=== PATIENT | female | born 1955 | race American Indian/Alaskan Native ===

== ENCOUNTER 2017-04-30 16:30 | Emergency (ER) | payer MEDICARE ==
[2017-04-30 17:13] LABS: Hematocrit 40.4 % (30.3-42.9); Hemoglobin 13.1 gm/dl (10.1-14.3); Mean Corpuscular HGB Conc 33 % (30-34); Mean Corpuscular Hemoglobin 29 pg (28-32); Mean Corpuscular Volume 90 fl (79-97); Platelet Count 286 K/mm3 (140-440); Red Blood Count 4.51 M/mm3 (3.65-5.03); Red Cell Distribution Width 15.1 % (13.2-15.2)
[2017-04-30 17:58] LABS: Anion Gap 20 mmol/L; Blood Urea Nitrogen 9 mg/dL (7-17); Calcium 10.8 mg/dL (8.4-10.2); Carbon Dioxide 22 mmol/L (22-30); Chloride 102.1 mmol/L (98-107); Glucose 146 mg/dL (65-100); Potassium 4.1 mmol/L (3.6-5.0); Sodium 140 mmol/L (137-145)
[2017-04-30] MEDS ORDERED: NACL 0.9% 1000 ML 1,000 ML IV ONE (19:58)
[2017-04-30] MEDS ORDERED: DELTASONE PO ONE (20:10)
[2017-04-30] MEDS ORDERED: PROVENTIL IH ONE (20:10)
[2017-04-30] MEDS ORDERED: DUONEB 0.5 MG-3 MG/3 ML SOLN IH ONE (20:10)
--- NOTE | 2017-04-30 20:14 | Emergency Department Report ---
ED Lower Extremity HPI - General Chief Complaint: Dyspnea/Respdistress Stated Complaint: R Leg Swelling Time Seen by Provider: 04/30/17 19:57 Source: patient Mode of arrival: Ambulatory Limitations: No Limitations - History of Present Illness Initial Comments: Patient is a 62-year-old female with a history of asthma and DVT greater than 10 years ago presenting to the ER with shortness of breath and right leg pain. Patient reports for the last 2 days she's had an ache in her right calf radiating upward into her right thigh, pain is constant and throbbing in nature. Patient reports she's had a DVT in the early 1999 and was on anticoagulants for 10 years but has only been taking baby aspirin for the last 7 years as per her PMD. Patient also reports associated shortness of breath with increased cough, no relief despite inhaler. Pt does not use a controller daily and has a rescue inhaler and prednisone when she needs it. Otherwise no fevers, chills, TAYLOR, NVD, sore throat, neck pain, chest pain, abd pain, travel, hemoptysis, falls, or sick contacts. - Related Data Home Medications Medication Instructions Recorded Confirmed Last Taken ALBUTEROL Inhaler [ProAir HFA 2 inhalation PO PRN 09/09/16 04/30/17 Unknown Inhaler] Aspirin [Adult Low Dose Aspirin EC] 81 mg PO QDAY 04/30/17 04/30/17 Unknown Tiotropium Br/Olodaterol HCl 2 puff PO PRN 04/30/17 04/30/17 Unknown [Stiolto Respimat Inhal [place]] predniSONE [Deltasone] 40 mg PO QDAY 04/30/17 04/30/17 Unknown Previous Rx's Medication Instructions Recorded Last Taken Type HYDROcodone/APAP 5-325 [[place] 1 each PO Q6HR PRN #20 tablet 09/09/16 Unknown Rx 5-325 mg TAB] Enoxaparin [Lovenox] 80 mg SQ Q12HR #8 syringe 05/01/17 Unknown Rx predniSONE [Deltasone] 50 mg PO QDAY #5 tab 05/01/17 Unknown Rx Allergies Allergy/AdvReac Type Severity Reaction Status Date / Time Penicillins Allergy Unknown Verified 03/18/16 20:51 Sulfa (Sulfonamide Allergy Hives Verified 03/29/16 10:08 Antibiotics) ED Review of Systems ROS: Stated complaint: R Leg Swelling Other details as noted in HPI Comment: All other systems reviewed and negative ED Past Medical Hx - Past Medical History Hx Heart Attack/AMI: Yes Hx Deep Vein Thrombosis: Yes Hx Asthma: Yes Additional medical history: chronic back pain / HIATIAL HERNIA - Surgical History Hx Cholecystectomy: Yes Hx Breast Surgery: Yes Additional Surgical History: back pain, tubal ligation, - Social History Smoking Status: Never Smoker Substance Use Type: None - Medications Home Medications: Home Medications Medication Instructions Recorded Confirmed Last Taken Type ALBUTEROL Inhaler [ProAir HFA 2 inhalation PO PRN 09/09/16 04/30/17 Unknown History Inhaler] HYDROcodone/APAP 5-325 [[place] 1 each PO Q6HR PRN #20 tablet 09/09/16 04/30/17 Unknown Rx 5-325 mg TAB] Aspirin [Adult Low Dose Aspirin EC] 81 mg PO QDAY 04/30/17 04/30/17 Unknown History Tiotropium Br/Olodaterol HCl 2 puff PO PRN 04/30/17 04/30/17 Unknown History [Stiolto Respimat Inhal [place]] predniSONE [Deltasone] 40 mg PO QDAY 04/30/17 04/30/17 Unknown History Enoxaparin [Lovenox] 80 mg SQ Q12HR #8 syringe 05/01/17 Unknown Rx predniSONE [Deltasone] 50 mg PO QDAY #5 tab 05/01/17 Unknown Rx ED Physical Exam - General Limitations: No Limitations General appearance: alert, in no apparent distress - Head Head exam: Present: atraumatic, normocephalic - Eye Eye exam: Present: normal appearance - ENT ENT exam: Present: mucous membranes moist - Neck Neck exam: Present: normal inspection - Respiratory Respiratory exam: Present: normal lung sounds bilaterally, wheezes (bilaterally) , decreased breath sounds. Absent: respiratory distress, rales, rhonchi, chest wall tenderness, accessory muscle use - Cardiovascular Cardiovascular Exam: Present: regular rate, normal rhythm, normal heart sounds. Absent: irregular rhythm, systolic murmur, diastolic murmur, rubs, gallop - GI/Abdominal GI/Abdominal exam: Present: soft, normal bowel sounds. Absent: distended, tenderness, guarding, rebound, rigid - Extremities Exam Extremities exam: Present: normal inspection, tenderness (Right lower calf and thigh), normal capillary refill. Absent: pedal edema, joint swelling - Back Exam Back exam: Present: normal inspection - Neurological Exam Neurological exam: Present: alert, oriented X3 - Psychiatric Psychiatric exam: Present: normal affect, normal mood - Skin Skin exam: Present: warm, dry, intact, normal color. Absent: rash ED Course Vital Signs 04/30/17 04/30/17 04/30/17 16:39 20:18 20:20 Temperature 99.1 F Pulse Rate 115 H Pulse Rate [ Anterior] Respiratory 18 Rate Respiratory Rate [Anterior] Blood Pressure 188/89 130/52 Blood Pressure [Right] O2 Sat by Pulse 97 98 98 Oximetry 04/30/17 04/30/17 04/30/17 20:30 21:26 21:30 Temperature Pulse Rate Pulse Rate [ Anterior] Respiratory Rate Respiratory Rate [Anterior] Blood Pressure 149/54 149/54 149/54 Blood Pressure [Right] O2 Sat by Pulse 99 99 99 Oximetry 04/30/17 04/30/17 04/30/17 21:40 21:50 22:00 Temperature Pulse Rate Pulse Rate [ Anterior] Respiratory Rate Respiratory Rate [Anterior] Blood Pressure 149/54 149/54 149/54 Blood Pressure [Right] O2 Sat by Pulse 97 96 100 Oximetry 04/30/17 04/30/17 04/30/17 22:10 22:55 22:58 Temperature Pulse Rate Pulse Rate [ 80 Anterior] Respiratory Rate Respiratory 20 Rate [Anterior] Blood Pressure 149/54 149/54 Blood Pressure [Right] O2 Sat by Pulse 100 98 Oximetry 04/30/17 04/30/17 05/01/17 23:00 23:10 00:44 Temperature Pulse Rate 82 Pulse Rate [ 88 Anterior] Respiratory 18 Rate Respiratory 20 Rate [Anterior] Blood Pressure 149/54 Blood Pressure 131/58 [Right] O2 Sat by Pulse 97 99 Oximetry - Reevaluation(s) Reevaluation #1: 05/01/17 00:32 Pt reports significant improvement after breathing treatments. Re-evaluation of the lungs show improved air movement and wheezing has resolved. Pt does report she has nebulizer treatments at home ED Lower Extremity MDM - Lab Data Result diagrams: 04/30/17 17:01 04/30/17 17:01 - Radiology Data Radiology results: report reviewed CTA chest: No PE, negative for acute cardiopulmonary findings - Medical Decision Making Given the patient history and presentation, patient needs a duplex of her lower extremities to rule out DVT. However we have no supervisor tower at this time. I discussed with the patient we will order it as an ambulatory order, hospitality manager her a Rx for dopplers, and she can have it done as an outpatient. Pt will be treated with lovenox 1mg/kg injections per day until she has results of her duplex. Critical care attestation.: If time is entered above; I have spent that time in minutes in the direct care of this critically ill patient, excluding procedure time. ED Disposition Clinical Impression: Arthralgia, Dyspnea, Asthma Disposition: - TO HOME OR SELFCARE Is pt being admited?: No Condition: Stable Instructions: Asthma (ED), Dyspnea (ED), Arthralgia (ED) Additional Instructions: PLEASE CALL [phone] AFTER 8AM TO BOOK AN APPOINTMENT FOR AN ULTRASOUND OF YOUR LOWER LEGS Prescriptions: Enoxaparin [Lovenox] 80 mg SQ Q12HR #8 syringe predniSONE [Deltasone] 50 mg PO QDAY #5 tab Referrals: PRIMARY CARE, [Primary Care Provider] - 3-5 Days
[2017-04-30 20:23] LABS: Bilirubin,Urine NEG (Negative); Blood,Urine SM (Negative); Ketones,Urine NEG (Negative); Leukocyte Esterase,Urine NEG (Negative); Nitrite,Urine NEG (Negative); Protein,Urine <15 mg/dL mg/dL (Negative); RBC,Urine < 1.0 /HPF (0.0-6.0); Urobilinogen,Urine < 2.0 mg/dL (<2.0)
[2017-04-30 20:27] LABS: WBC,Urine < 1.0 /HPF (0.0-6.0)
[2017-04-30] MEDS ORDERED: NACL ONE (20:54)
[2017-04-30] MEDS ORDERED: ZOFRAN ONE (21:21)
[2017-04-30] MEDS ORDERED: BENADRYL ONE (21:22)
--- NOTE | 2017-04-30 22:00 | Cat Scan Report ---
FINAL REPORT EXAM: CT ANGIO CHEST HISTORY: r/o PE, h/o DVT TECHNIQUE: CT imaging obtained through the chest in pulmonary angiographic phase following intravenous administration of 100 cc Omnipaque 350 contrast. Transaxial, Coronal and sagittal reformats are provided. PRIORS: None. FINDINGS: Normal caliber main pulmonary artery. Well opacified pulmonary arterial tree. No pulmonary embolism. Mediastinum is unremarkable. Thoracic aorta is normal in course and caliber. No pneumothorax, effusion or focal airspace disease. The central airways are patent. No bronchiectasis. Imaged portion of the upper abdomen is remarkable for cholecystectomy. The superficial soft tissues are unremarkable. No acute bony abnormality or worrisome osseous lesions identified. IMPRESSION: No pulmonary embolism or other acute chest finding.
[2017-04-30] MEDS ORDERED: BENADRYL IV ONE (22:11)
[2017-04-30] MEDS ORDERED: ZOFRAN IV ONE (22:11)
[2017-05-01] MEDS ORDERED: LOVENOX SUB-Q ONE (00:23)
[2017-05-01 00:46] VITALS: BP 131/58
--- NOTE | 2017-05-01 07:28 | XRay Report ---
Chest 2 views: History: Shortness of breath. Findings: Normal cardiomediastinal silhouette. Trachea is midline. No consolidation, pneumothorax or pleural effusion. Impression: No acute cardiopulmonary findings.
== END 2017-05-01 01:26 | disposition home or self-care (01) ==
LOC: ED 16:30
DX: J45.909 Unspecified asthma, uncomplicated (principal); M79.604 Pain in right leg; I25.2 Old myocardial infarction; Z79.82 Long term (current) use of aspirin; Z86.718 Personal history of other venous thrombosis and embolism; Z98.51 Tubal ligation status; Z98.890 Other specified postprocedural states; Z88.0 Allergy status to penicillin; Z88.2 Allergy status to sulfonamides
CPT/HCPCS: 36415; 71020; 71275; 80048; 81001; 83880; 85027; 85379; 94640; 96361; 96372; 96374; 96375; 99285; J1200; J1650; J2405; J2930; J7030; J7512; Q9967

== ENCOUNTER 2017-10-11 09:56 | Emergency (ER) | payer MEDICARE ==
[2017-10-11 11:23] LABS: Basophils % (Auto) 0.3 % (0.0-1.8); Eosinophils % (Auto) 2.6 % (0.0-4.3); Hematocrit 40.6 % (30.3-42.9); Hemoglobin 13.3 gm/dl (10.1-14.3); Mean Corpuscular HGB Conc 33 % (30-34); Mean Corpuscular Hemoglobin 29 pg (28-32); Mean Corpuscular Volume 90 fl (79-97); Platelet Count 249 K/mm3 (140-440); Red Blood Count 4.52 M/mm3 (3.65-5.03); Red Cell Distribution Width 15.6 % (13.2-15.2); White Blood Count 6.8 K/mm3 (4.5-11.0)
--- NOTE | 2017-10-11 11:29 | XRay Report ---
CHEST 2 VIEWS INDICATION: Shortness of breath. COMPARISON: 04/30/2017 FINDINGS: PA and lateral chest radiographs demonstrate stable cardiomediastinal silhouette and osseous structures. Slight increased bronchovascular prominence as in the right upper lobe. No significant pleural effusions. Cholecystectomy clips. CONCLUSION: Minimal pulmonary vascular redistribution without overt CHF. Please correlate. Thank you for the opportunity to participate in this patient's care.
--- NOTE | 2017-10-11 11:37 | Emergency Department Report ---
ED Shortness of Breath HPI - General Chief Complaint: Dyspnea/Respdistress Stated Complaint: ASTHMA, AND SPIDER BITE Time Seen by Provider: 10/11/17 11:18 Source: patient Mode of arrival: Wheelchair Limitations: No Limitations - History of Present Illness Initial Comments: Patient is 62 years old female with history of asthma, presented today with asthmatic exacerbation started 2 days ago associated with cough productive of greenish sputum, low-grade fever. Patient also stated that she has a lump on her left breast, she was seen by her primary care physician given doxycycline 2 days ago. Patient denied nausea vomiting or diarrhea. No chest pain. MD Complaint: shortness of breath, cough, "asthma attack" -: days(s) Known History Of: asthma - Related Data Home Medications Medication Instructions Recorded Confirmed Last Taken ALBUTEROL Inhaler [ProAir HFA 2 inhalation PO PRN 09/09/16 10/11/17 10/10/17 Inhaler] Doxycycline [Vibramycin] 100 mg PO Q12HR 10/11/17 10/11/17 10/10/17 Allergies Allergy/AdvReac Type Severity Reaction Status Date / Time Penicillins Allergy Unknown Verified 03/18/16 20:51 Sulfa (Sulfonamide Allergy Hives Verified 03/29/16 10:08 Antibiotics) ED Review of Systems ROS: Stated complaint: ASTHMA, AND SPIDER BITE Other details as noted in HPI Comment: All other systems reviewed and negative Constitutional: fever. denies: chills Eyes: denies: eye pain ENT: denies: throat pain Respiratory: cough, shortness of breath, SOB with exertion, SOB at rest, wheezing. denies: orthopnea Cardiovascular: denies: chest pain, palpitations Gastrointestinal: denies: abdominal pain, nausea, vomiting, diarrhea, constipation, hematemesis, melena, hematochezia Skin: denies: rash Neurological: denies: headache, weakness, numbness, paresthesias ED Past Medical Hx - Past Medical History Previous Medical History?: Yes Hx Heart Attack/AMI: Yes Hx Deep Vein Thrombosis: Yes Hx Asthma: Yes Additional medical history: chronic back pain / HIATIAL HERNIA - Surgical History Past Surgical History?: Yes Hx Cholecystectomy: Yes Hx Breast Surgery: Yes Additional Surgical History: back pain, tubal ligation, - Social History Smoking Status: Never Smoker Substance Use Type: Prescribed - Medications Home Medications: Home Medications Medication Instructions Recorded Confirmed Last Taken Type ALBUTEROL Inhaler [ProAir HFA 2 inhalation PO PRN 09/09/16 10/11/17 10/10/17 History Inhaler] Doxycycline [Vibramycin] 100 mg PO Q12HR 10/11/17 10/11/17 10/10/17 History ED Physical Exam - General Limitations: No Limitations General appearance: alert, in no apparent distress - Head Head exam: Present: atraumatic, normocephalic, normal inspection - Eye Eye exam: Present: PERRL - ENT ENT exam: Present: normal exam, normal orophraynx, mucous membranes moist - Neck Neck exam: Present: full ROM. Absent: tenderness, meningismus, lymphadenopathy - Respiratory Respiratory exam: Present: wheezes, decreased breath sounds, prolonged expiratory, other (left breast exam showed a 1 cm x 1 cm lesion, nontender to palpation no erythema or discharge.). Absent: respiratory distress, rales, rhonchi, stridor - Cardiovascular Cardiovascular Exam: Present: tachycardia. Absent: systolic murmur, diastolic murmur - GI/Abdominal GI/Abdominal exam: Present: soft, normal bowel sounds. Absent: tenderness, guarding, rebound, rigid, mass, bruit, pulsatile mass, hernia - Extremities Exam Extremities exam: Present: normal inspection, full ROM, normal capillary refill - Back Exam Back exam: Present: normal inspection. Absent: CVA tenderness (R), CVA tenderness (L) - Neurological Exam Neurological exam: Present: alert, oriented X3, CN II-XII intact - Psychiatric Psychiatric exam: Present: normal affect - Skin Skin exam: Present: warm, intact, normal color. Absent: rash, cyanosis, diaphoretic ED Course Vital Signs 10/11/17 10/11/17 10/11/17 10:14 11:32 11:40 Temperature 100.5 F H 102.2 F H Pulse Rate 125 H Respiratory 20 Rate Blood Pressure 134/53 132/75 O2 Sat by Pulse 97 96 Oximetry 10/11/17 10/11/17 10/11/17 12:00 12:30 12:33 Temperature Pulse Rate Respiratory 16 Rate Blood Pressure 139/75 142/85 O2 Sat by Pulse 94 Oximetry 10/11/17 10/11/17 10/11/17 13:00 13:30 14:00 Temperature Pulse Rate Respiratory Rate Blood Pressure 143/77 142/83 127/76 O2 Sat by Pulse 93 93 Oximetry 10/11/17 14:49 Temperature 99.1 F Pulse Rate Respiratory Rate Blood Pressure O2 Sat by Pulse Oximetry - Reevaluation(s) Reevaluation #2: 10/11/17 11:38 Regarding the lump on the left breast I advised the patient to follow-up with her primary care physician for mammogram. Reevaluation #3: 10/11/17 15:14 Patient stated that she is feeling much better and she is ready to go home. ED Medical Decision Making - Lab Data Result diagrams: 10/11/17 Unknown 10/11/17 10:19 - Radiology Data Radiology results: image reviewed interpreted by me: Chest x-ray no acute findings. Critical care attestation.: If time is entered above; I have spent that time in minutes in the direct care of this critically ill patient, excluding procedure time. ED Disposition Clinical Impression: Asthma exacerbation, Acute bronchitis Disposition: DC-01 TO HOME OR SELFCARE Is pt being admited?: No Condition: Stable Instructions: Asthma (ED), Acute Bronchitis (ED) Referrals: PRIMARY CARE, [Primary Care Provider] - 3-5 Days
[2017-10-11 11:42] LABS: Anion Gap 18 mmol/L; BUN/Creatinine Ratio 14; Blood Urea Nitrogen 10 mg/dL (7-17); Calcium 10.4 mg/dL (8.4-10.2); Carbon Dioxide 27 mmol/L (22-30); Chloride 98.8 mmol/L (98-107); Glucose 114 mg/dL (65-100); Potassium 3.4 mmol/L (3.6-5.0); Sodium 140 mmol/L (137-145)
[2017-10-11] MEDS ORDERED: LEVAQUIN 750MG/150ML 750 MG/150 ML BAG IV ONE (11:47)
[2017-10-11] MEDS ORDERED: TYLENOL PO ONE (11:47)
[2017-10-11] MEDS ORDERED: NACL 0.9% 1000 ML 1,000 ML ONE (12:30)
[2017-10-11] MEDS ORDERED: NACL 0.9% 1000 ML 1,000 ML IV ONE (12:32)
[2017-10-11 14:41] VITALS: BP 127/76
== END 2017-10-11 15:48 | disposition home or self-care (01) ==
LOC: ED 09:56
DX: J45.901 Unspecified asthma with (acute) exacerbation (principal); J20.9 Acute bronchitis, unspecified; I25.2 Old myocardial infarction; Z86.718 Personal history of other venous thrombosis and embolism; Z90.49 Acquired absence of other specified parts of digestive tract; Z98.51 Tubal ligation status; Z88.0 Allergy status to penicillin; Z88.1 Allergy status to other antibiotic agents
CPT/HCPCS: 36415; 71020; 80048; 82140; 84484; 85025; 87040; 93005; 93010; 96365; 96375; 99284; J1956; J2930; J7030

== ENCOUNTER 2018-03-11 14:19 | Emergency (ER) | payer MEDICARE ==
[2018-03-11] MEDS ORDERED: DILAUDID IV ONE ×2 (17:53→20:09)
[2018-03-11] MEDS ORDERED: NACL 0.9% 500 ML 500 ML IV ONE (17:53)
[2018-03-11] MEDS ORDERED: DECADRON IV ONE (17:53)
--- NOTE | 2018-03-11 17:54 | Emergency Department Report ---
ED Back Pain/Injury HPI - General Chief Complaint: Back Pain/Injury Stated Complaint: BACK PAIN HX SLIPPED DISC Time Seen by Provider: 03/11/18 17:36 Source: patient, RN notes reviewed, old records reviewed Limitations: Physical Limitation - History of Present Illness Initial Comments: This is a 62-year-old female who was previously unknown to this provider. Patient has a past medical history of asthma, deep vein thrombosis, heart attack , chronic back pain, multiple back surgeries, including reported L4-L5 laminectomy, history of spinal stimulator which was subsequently removed, nerve cauterization. Patient presents to the ER With the complaint of nontraumatic lower back pain. It radiates down the right lower extremity just proximal to the knee. There is no bladder or bowel incontinence. She had temporary fecal retention which has since resolved. She is chronic weakness and weakness with dorsiflexion in the left lower extremity, and chronic decreased to light touch in the left lower extremity. Her pain is so intense that she has trouble walking. She reports that she thinks her left lower extremity is weaker than usual. She has some weakness in her right lower extremity but she is not sure if this is coming from pain. She has no headache , neck pain, chest pain, or abdominal pain. There is no shortness of breath. MD Complaint: back pain -: Gradual Similar Symptoms Previously: Yes Place: home Radiation: right leg Severity: severe Quality: burning, sharp Consistency: constant Improves With: medication Worsens With: movement Context: while lifting, turning/twisting Associated Symptoms: numbness, difficulty walking, incontinence. denies: confusion, weakness, chest pain, cough, difficulty urinating, diaphoresis, fever /chills, constipation, headaches, abdominal pain, loss of appetite, malaise, nausea/vomiting, rash, seizure, shortness of breath, syncope - Related Data Home Medications Medication Instructions Recorded Confirmed Last Taken ALBUTEROL Inhaler [ProAir HFA 2 inhalation PO PRN 09/09/16 10/11/17 10/10/17 Inhaler] Doxycycline [Vibramycin] 100 mg PO Q12HR 10/11/17 10/11/17 10/10/17 Previous Rx's Medication Instructions Recorded Last Taken Type Levofloxacin [Levaquin TAB] 500 mg PO QDAY #7 tablet 10/11/17 Unknown Rx Prednisone [predniSONE 10 mg 10 mg PO .TAPER #1 tab.ds.pk 10/11/17 Unknown Rx (6-Day Pack, 21 Tabs)] Allergies Allergy/AdvReac Type Severity Reaction Status Date / Time Penicillins Allergy Unknown Verified 03/18/16 20:51 Sulfa (Sulfonamide Allergy Hives Verified 03/29/16 10:08 Antibiotics) ED Review of Systems ROS: Stated complaint: BACK PAIN HX SLIPPED DISC Other details as noted in HPI Comment: All other systems reviewed and negative ED Past Medical Hx - Past Medical History Hx Heart Attack/AMI: Yes Hx Deep Vein Thrombosis: Yes Hx Asthma: Yes Additional medical history: chronic back pain / HIATIAL HERNIA - Surgical History Hx Cholecystectomy: Yes Hx Breast Surgery: Yes Additional Surgical History: back pain, tubal ligation, MULTIPLE BACK SURGERIES - Social History Smoking Status: Never Smoker Substance Use Type: None - Medications Home Medications: Home Medications Medication Instructions Recorded Confirmed Last Taken Type ALBUTEROL Inhaler [ProAir HFA 2 inhalation PO PRN 09/09/16 10/11/17 10/10/17 History Inhaler] Doxycycline [Vibramycin] 100 mg PO Q12HR 10/11/17 10/11/17 10/10/17 History Levofloxacin [Levaquin TAB] 500 mg PO QDAY #7 tablet 10/11/17 Unknown Rx Prednisone [predniSONE 10 mg 10 mg PO .TAPER #1 tab.ds.pk 10/11/17 Unknown Rx (6-Day Pack, 21 Tabs)] ED Physical Exam - General Limitations: Physical Limitation General appearance: alert, in no apparent distress - Head Head exam: Present: atraumatic, normocephalic - Eye Eye exam: Present: normal appearance, EOMI. Absent: nystagmus - ENT ENT exam: Present: normal exam, normal orophraynx, mucous membranes moist, normal external ear exam - Neck Neck exam: Present: normal inspection, full ROM - Respiratory Respiratory exam: Present: normal lung sounds bilaterally. Absent: respiratory distress - Cardiovascular Cardiovascular Exam: Present: regular rate, normal rhythm, normal heart sounds. Absent: systolic murmur, diastolic murmur, rubs, gallop - GI/Abdominal GI/Abdominal exam: Present: soft, normal bowel sounds. Absent: distended, tenderness, guarding, rebound, rigid - Extremities Exam Extremities exam: Present: normal inspection. Absent: tenderness, pedal edema, joint swelling, calf tenderness - Back Exam Back exam: Present: normal inspection, tenderness, paraspinal tenderness, vertebral tenderness - Neurological Exam Neurological exam: Present: alert, oriented X3, CN II-XII intact, motor sensory deficit (chronically decreased sensation to light touch in the left lower extremity. 2 point discrimination not intact. Plantar reflexes are equivocal. 3-5 strength left lower extremity), other (there is 5 out of 5 strength in the right upper extremity, left upper extremity. There is 4 out of 5 strength right lower extremity, down going plantar flexion in the right lower extremity, downgoing plantar reflexes in the right lower extremity. Sensation is intact to light touch in the right lower extremity, 2-point discrimination not intact in the right lower extremity, and proprioception is intact in the right lower extremity.) - Psychiatric Psychiatric exam: Present: normal affect, normal mood - Skin Skin exam: Present: warm, dry, intact, normal color. Absent: rash ED Course Vital Signs 03/11/18 14:43 Temperature 98.4 F Pulse Rate 85 Respiratory 18 Rate Blood Pressure 144/80 O2 Sat by Pulse 98 Oximetry - Reevaluation(s) Reevaluation #1: 03/11/18 18:59 Differential diagnosis, including but not limited to: Epidural compression syndrome, radicular compression syndrome, tethered cord Assessment and plan: This is a 62-year-old female with acute on chronic back pain, with a radicular component with acutely worsened weakness and sensory deficits. Rectal sensation and tone are intact, during the rectal examination, this provider is escorted by nurse Angelina Bro. We will obtain an emergent MR of the lumbar spine and thoracic spine. Patient will be given steroids empirically. Patient will be given hydromorphone for pain. Reevaluation #2: 03/11/18 21:41 The patient is reassessed multiple times. Her pain is improved. However she still has residual weakness in the left leg, although improved from prior. She is unable to stand or walk. MR findings demonstrate no discrete evidence of cord compression in the thoracic or lumbar spine. Suggestion was made of possible cervical spine lesion, however the patient does not have upper extremity findings. Highly doubt acute surgical process at this time. Case is discussed with neurosurgery hydroelectric production manager, Dr. Eller for [place]; Given physical exam findings, ambiguous MRI findings, patient to be transferred for definitive care for subspecialty services not available at this hospital. Patient and family/friends informed, patient is amenable to transfer. ED Medical Decision Making - Lab Data Result diagrams: 03/11/18 18:00 03/11/18 18:00 Vital Signs 03/11/18 14:43 Temperature 98.4 F Pulse Rate 85 Respiratory 18 Rate Blood Pressure 144/80 O2 Sat by Pulse 98 Oximetry Lab Results 03/11/18 03/11/18 03/11/18 Range/Units 16:21 18:00 18:00 WBC 11.4 H (4.5-11.0) K/mm3 RBC 4.31 (3.65-5.03) M/mm3 Hgb 12.5 (10.1-14.3) gm/dl Hct 38.1 (30.3-42.9) % MCV 88 (79-97) fl MCH 29 (28-32) pg MCHC 33 (30-34) % RDW 15.6 H (13.2-15.2) % Plt Count 238 (140-440) K/mm3 PT 12.5 (12.2-14.9) Sec. INR 0.89 (0.87-1.13) Sodium (137-145) mmol/L Potassium (3.6-5.0) mmol/L Chloride (98-107) mmol/L Carbon Dioxide (22-30) mmol/L Anion Gap mmol/L BUN (7-17) mg/dL Creatinine (0.7-1.2) mg/dL Estimated GFR ml/min BUN/Creatinine Ratio % Glucose (65-100) mg/dL Lactic Acid 0.90 (0.7-2.0) mmol/L Calcium (8.4-10.2) mg/dL C-Reactive Protein (0.00-1.30) mg/dL 03/11/18 03/11/18 Range/Units 18:00 18:00 WBC (4.5-11.0) K/mm3 RBC (3.65-5.03) M/mm3 Hgb (10.1-14.3) gm/dl Hct (30.3-42.9) % MCV (79-97) fl MCH (28-32) pg MCHC (30-34) % RDW (13.2-15.2) % Plt Count (140-440) K/mm3 PT (12.2-14.9) Sec. INR (0.87-1.13) Sodium 141 (137-145) mmol/L Potassium 4.0 (3.6-5.0) mmol/L Chloride 101.1 (98-107) mmol/L Carbon Dioxide 27 (22-30) mmol/L Anion Gap 17 mmol/L BUN 13 (7-17) mg/dL Creatinine 0.5 L (0.7-1.2) mg/dL Estimated GFR > 60 ml/min BUN/Creatinine Ratio 26 % Glucose 88 (65-100) mg/dL Lactic Acid (0.7-2.0) mmol/L Calcium 10.2 (8.4-10.2) mg/dL C-Reactive Protein 1.10 (0.00-1.30) mg/dL - Radiology Data Radiology results: pending Critical care attestation.: If time is entered above; I have spent that time in minutes in the direct care of this critically ill patient, excluding procedure time. ED Disposition Clinical Impression: Inability to walk Back pain Qualifiers: Back pain laterality: unspecified Sciatica presence: with sciatica Disposition: [facility] IP Is pt being admited?: No Does the pt Need Aspirin: No Condition: Good
[2018-03-11 18:42] LABS: Hematocrit 38.1 % (30.3-42.9); Hemoglobin 12.5 gm/dl (10.1-14.3); Mean Corpuscular HGB Conc 33 % (30-34); Mean Corpuscular Hemoglobin 29 pg (28-32); Mean Corpuscular Volume 88 fl (79-97); Platelet Count 238 K/mm3 (140-440); Red Blood Count 4.31 M/mm3 (3.65-5.03); Red Cell Distribution Width 15.6 % (13.2-15.2)
[2018-03-11 18:43] LABS: INR 0.89 (0.87-1.13)
[2018-03-11 18:54] LABS: BUN/Creatinine Ratio 26; Blood Urea Nitrogen 13 mg/dL (7-17); Calcium 10.2 mg/dL (8.4-10.2); Hemolysis Index 10
[2018-03-11 19:12] LABS: Erythrocyte Sedimentation Rate 47 mm/Hr (0-20)
--- NOTE | 2018-03-11 20:05 | Magnetic Resonance Report ---
FINAL REPORT PROCEDURE: MR THORACIC SPINE WO/W CON TECHNIQUE: Magnetic resonance imaging of the thoracic spine was performed using standard pulse sequences before and after the IV injection of paramagnetic contrast. CPT 63575 HISTORY: back pain, evaluate cord compression COMPARISON: No prior studies are available for comparison. FINDINGS: The signal intensity and height of the vertebral bodies appears normal. No fracture or subluxation is seen. There is a small to moderate-sized asymmetric disc protrusion or herniation to the right at the T11-T12 disc space obscuring a portion the anterior epidural space without definite cord compression or spinal stenosis. No other evidence of disc herniation or spinal stenosis. Minimal asymmetric disc bulges are present to the left T5-T6 and T6-T7 without cord compression or spinal stenosis. The signal intensity and caliber of the cord appears normal. While not studied in detail there appears to be degenerative disc changes in the thoracic spine with disc space narrowing and posterior osteophytic spurring overlying disc bulges at C4-5, C5-6 and C6-7 level. This does obscure the anterior epidural space. I cannot exclude mild cord compression. IMPRESSION: Degenerative disc disease T5-T6, T6-T7 and greatest at T11-T12 without cord compression or spinal stenosis. Degenerative disc disease also appears to be partially visualized in the cervical spine although not studied in detail. If clinically indicated MRI of the cervical spine could be obtained for further evaluation.
--- NOTE | 2018-03-11 20:31 | Magnetic Resonance Report ---
FINAL REPORT PROCEDURE: MR LUMBAR SPINE WO/W CON TECHNIQUE: Magnetic resonance imaging of the lumbar spine was performed using standard pulse sequences before and after the IV injection of paramagnetic contrast. CPT 71654 HISTORY: back pain, r out cord compression COMPARISON: No prior studies are available for comparison. FINDINGS: The signal intensity and height of the vertebral bodies appears normal with the exception of mild Modic type 2 degenerative endplate changes at the L5-S1 disc space. The conus appears normal. No mass is visualized. The cord appropriately terminates L1-L2 disc space. There is a small to moderate size disc herniation right paracentral location obscuring a portion the anterior epidural space at T12-L1 disc space. There is no spinal stenosis or cord compression. L1-2: No significant abnormality . L2-3: There is mild degenerative signal seen in the disc space. There is minimal diffuse disc bulge present without focal disc herniation spinal stenosis or significant neural foraminal stenosis. The neural foramina bilaterally are mildly narrowed.. L3-4: Mild degenerative signal is seen in the disc space. Mild diffuse posterior disc bulge is present without focal disc herniation or spinal stenosis. The neural foramina bilaterally are mildly narrowed secondary to ligamentum flavum laxity otherwise appear adequate.. L4-5: There is moderate decrease in height of the L4-5 disc space. Degenerative signal is seen in the disc. There is a diffuse posterior disc bulge extending into the neural foramina bilaterally. The foramina are also narrowed secondary to facet arthritis and ligamentum flavum laxity. The neural foramina bilaterally are narrowed and I suspect there is compression of the exiting L4 nerve root on the left. L5-S1: No significant abnormality . Other: None . IMPRESSION: Moderate degenerative disc disease L4-5 level as described. Neural foraminal stenosis appears to be present on the left secondary to a diffuse disc bulge facet arthritis and ligamentum flavum laxity. Mild disc bulges are visualized at the L2-3 and L3-4 disc spaces as described. Small to moderate-sized disc herniation seen right paracentral location T12-L1 level as described. There is no spinal stenosis or cord compression.
[2018-03-12] MEDS ORDERED: DILAUDID ONE (03:28)
[2018-03-12] MEDS ORDERED: DILAUDID IV ONE (03:32)
[2018-03-12 04:03] VITALS: BP 122/60
== END 2018-03-12 04:09 | disposition short-term general hospital (02) ==
LOC: ED 14:19
DX: M54.30 Sciatica, unspecified side (principal); J45.909 Unspecified asthma, uncomplicated; Z86.718 Personal history of other venous thrombosis and embolism; Z90.49 Acquired absence of other specified parts of digestive tract; Z98.51 Tubal ligation status; Z88.0 Allergy status to penicillin; Z88.2 Allergy status to sulfonamides
CPT/HCPCS: 36415; 72157; 72158; 80048; 82140; 85027; 85610; 85652; 86140; A9577; J1100; J1170; J7040; 96374; 96375; 96376

== ENCOUNTER 2021-01-22 09:52 | Emergency (ER) | payer MEDICARE ==
[2021-01-22 10:40] VITALS: BP 144/63
[2021-01-22] MEDS ORDERED: ONDANSETRON 4 MG ODT TAB PO ONE (10:48)
[2021-01-22] MEDS ORDERED: oxyCODONE /ACETAMINOPHEN 5-325MG TAB PO ONE (10:48)
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
[2021-01-22 11:43] LABS: Basophils % (Auto) 0.4 % (0.0-1.8); Eosinophils # (Auto) 0.2 K/mm3 (0.0-0.4); Eosinophils % (Auto) 2.4 % (0.0-4.3); Hematocrit 41.6 % (30.3-42.9); Hemoglobin 13.8 gm/dl (10.1-14.3); Lymphocytes # (Auto) 1.3 K/mm3 (1.2-5.4); Lymphocytes % (Auto) 18.2 % (13.4-35.0); Mean Corpuscular HGB Conc 33 % (30-34); Mean Corpuscular Volume 90 fl (79-97); Monocytes # (Auto) 0.4 K/mm3 (0.0-0.8); Monocytes % (Auto) 5.9 % (0.0-7.3); Platelet Count 249 K/mm3 (140-440); Red Blood Count 4.59 M/mm3 (3.65-5.03); Red Cell Distribution Width 15.4 % (13.2-15.2)
[2021-01-22 12:11] LABS: Alanine Aminotransferase 22 units/L (7-56); Albumin 4.4 g/dL (3.9-5); Blood Urea Nitrogen 11 mg/dL (7-17); Calcium 10.6 mg/dL (8.4-10.2); Hemolysis Index 2
[2021-01-22 12:12] LABS: BUN/Creatinine Ratio 16
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
[2021-01-22] MEDS ORDERED: METOCLOPRAMIDE 10 MG/2 ML INJ IV ONE (13:11)
[2021-01-22] MEDS ORDERED: diphenhydrAMINE 50 MG/ML VIAL IV ONE (13:11)
[2021-01-22] MEDS ORDERED: KETOROLAC 30 MG/1 ML INJ IV ONE (13:11)
== END 2021-01-22 14:02 | disposition home or self-care (01) ==
LOC: ED 09:52
DX: S09.90XA Unspecified injury of head, initial encounter (principal); S43.401A Unspecified sprain of right shoulder joint, initial encounter; R07.89 Other chest pain; I25.2 Old myocardial infarction; J45.909 Unspecified asthma, uncomplicated; Z86.718 Personal history of other venous thrombosis and embolism; Z90.49 Acquired absence of other specified parts of digestive tract; Z98.890 Other specified postprocedural states; Z79.899 Other long term (current) drug therapy; Z88.0 Allergy status to penicillin; Z88.2 Allergy status to sulfonamides; V49.49XA Driver injured in collision with other motor vehicles in traffic accident, initial encounter; W22.10XA Striking against or struck by unspecified automobile airbag, initial encounter; Y93.89 Activity, other specified; Y92.410 Unspecified street and highway as the place of occurrence of the external cause; Y99.8 Other external cause status
CPT/HCPCS: 36415; 70450; 71260; 73030; 80053; 84484; 85025; 96374; 96375; 99285; J1200; J1885; J2765; Q9967; Q0162